=== PATIENT | female | born 1960 | race Two or more races ===

== ENCOUNTER 2024-07-04 11:13 | Emergency (ER) | payer OTHER ==
[~2024-07-04] VITALS: Ht 149.9 cm; Wt 61.2 kg
[2024-07-04] MEDS ORDERED: DUTASTERIDE0.5 MG (12:50)
[2024-07-04] MEDS ORDERED: BENZONATATE200 M1 PO (14:44)
[2024-07-04] MEDS ORDERED: PEPCID AC20 MG PO (14:44)
[2024-07-04] MEDS ORDERED: OSEL75CA PO (14:44)
== END 2024-07-04 15:11 | disposition home or self-care (01) ==
LOC: ER 11:15
DX: J10.1 Influenza due to other identified influenza virus with other respiratory manifestations (principal); Z88.0 Allergy status to penicillin